=== PATIENT | female | born 1965 | race Caucasian/White ===

== ENCOUNTER → 2018-10-26 | Outpatient (CLI) | payer OTHER ==
[~2018-10-26] MED LIST: BACTRIM DS TAB1 EACH; CLEOCIN HCL150 MG PO; LEVOTHYROXIN0.175 MG
[2018-10-26 04:26] LABS: HEMATOCRIT 40.8 % (37.0-47.0); MCH 29.6 pg (26.0-34.0); MCHC 34.3 g/dL (28.0-37.0); MCV 86.4 fL (80.0-100.0); MPV 8.3 fl. (7.2-11.1); RBC 4.72 mil/uL (4.20-5.00); RDW-CV 14.8 % (10.5-14.5); WBC 5.3 thou/uL (4.0-11.0)
[2018-10-26 04:33] LABS: CALCIUM 9.1 mg/dL (8.5-10.1)
== END ==
LOC: M.CT 10-25 21:35
DX: R91.8 Other nonspecific abnormal finding of lung field (principal); E03.9 Hypothyroidism, unspecified; M47.814 Spondylosis without myelopathy or radiculopathy, thoracic region; M25.78 Osteophyte, vertebrae; Z85.850 Personal history of malignant neoplasm of thyroid

== ENCOUNTER → 2019-12-12 | Outpatient (CLI) | payer OTHER | LOC: M.LAB 19:41 | DX: J02.9 Acute pharyngitis, unspecified (principal) ==

== ENCOUNTER → 2021-04-16 | Outpatient (CLI) | payer OTHER ==
[2021-04-16 03:16] LABS: HEMATOCRIT 40.2 % (37.0-47.0); HEMOGLOBIN 13.4 gm/dL (12.0-15.0); MCH 28.8 pg (26.0-34.0); MCHC 33.3 g/dL (28.0-37.0); MCV 86.7 fL (80.0-100.0); MPV 7.7 fl. (7.2-11.1); RBC 4.63 mil/uL (4.20-5.00); RDW-CV 14.2 % (10.5-14.5); WBC 6.3 thou/uL (4.0-11.0)
[2021-04-16 03:28] LABS: ALBUMIN 4.2 g/dL (3.4-5.0); CALCIUM 8.8 mg/dL (8.5-10.1); POTASSIUM 4.1 mmol/L (3.5-5.1); TOTAL BILIRUBIN 0.3 mg/dL (<0.1-1.0); TOTAL PROTEIN 7.5 g/dL (6.4-8.2)
[2021-04-17 02:06] LABS: TESTOSTERONE < 3 ng/dL (4-50); THYROID PEROXIDASE (TPO) AB 10 IU/mL (0-34)
== END ==
LOC: M.LAB 01:07
DX: E34.9 Endocrine disorder, unspecified (principal)

== ENCOUNTER → 2021-04-29 | Outpatient (CLI) | payer OTHER | LOC: M.RAD 20:15 | PROVIDERS: ATTEND Family Medicine | DX: M19.042 Primary osteoarthritis, left hand (principal) ==